=== PATIENT | female | born 1985 | race Caucasian/White ===

== ENCOUNTER → 2024-12-01 | Outpatient (CLI) | payer OTHER ==
[~2024-12-01] MED LIST: IBUP800; IBUP800 PO; OXYACE5T; OXYACE5T PO; RANI150 PO; Verotin-Gr Cap1 EACH; Verotin-Gr Cap1 EACH PO
== END ==
LOC: LAB 16:15 → LAB SHORT 16:15
DX: Z01.419 Encounter for gynecological examination (general) (routine) without abnormal findings (principal)
CPT/HCPCS: 87624; G0145